=== PATIENT | female | born 1950 | race Caucasian/White ===

== ENCOUNTER 2021-04-29 12:40 | Emergency (ER) | payer MEDICARE, SELFPAY ==
[2021-04-29 12:50] VITALS: BP 133/65; PULSE 60; RESP 16; TEMP 37.3; O2SAT 100
--- NOTE | 2021-04-29 12:59 | ED.GENADULT ---
HPI - General Adult General Chief complaint: Urogenital-Female Stated complaint: Urinary Problem Time Seen by Provider: 04/29/21 13:05 Source: patient Mode of arrival: ambulatory Limitations: no limitations History of Present Illness HPI narrative: 71-year-old female patient presents to the [facility] with complaints of urinary symptoms on and off for a month. Patient states she has had some pain with urination, urgency, frequency and some cramping at times. Denies any low back pain, fevers, body aches or chills. Patient states she has been taking AZO at times which she feels like does help. Related Data Home Medications Medication Instructions Recorded Confirmed atenolol 50 mg PO DAILY 04/29/21 04/29/21 atorvastatin 10 mg PO DAILY 04/29/21 04/29/21 benazepril-hydrochlorothiazide 10 tablet PO DAILY 04/29/21 04/29/21 pantoprazole 20 mg PO DAILY 04/29/21 04/29/21 Allergies Allergy/AdvReac Type Severity Reaction Status Date / Time niacin Allergy Unknown Nausea Verified 04/29/21 13:04 Sulfa (Sulfonamide Allergy Unknown unknown Verified 04/29/21 13:04 Antibiotics) Review of Systems Review of Systems: CONSTITUTIONAL: Denies fever, chills, or sweats. EYES: Denies visual changes, redness, or discharge. ENT: Denies rhinorrhea, congestion, sore throat, or otalgia. CARDIOVASCULAR: Denies chest pain, palpitations, or edema. RESPIRATORY: Denies cough or dyspnea. GASTROINTESTINAL: Denies abdominal pain, nausea, vomiting, or diarrhea. GENITOURINARY: Positive dysuria denies hematuria. SKIN: Denies rash or itching. MUSCULOSKELETAL: Denies back pain, joint pain, or myalgia. NEUROLOGIC: Denies headache, numbness, or weakness. PSYCHIATRIC: Denies anxiety or depression. [facility] Past Medical History Medical History Hematuria, unspecified Polyp of cervix uteri Squamous cell skin cancer Family History Family History Father Hypertension Social History Social History Smoking status: Current every day smoker Alcohol intake: never Comments At the time of my signature I agree with nursing past medical history, surgical, social, and family history. There is no relevant family history pertinent to the presenting complaint. Exam Narrative: GENERAL: Well-appearing, well-nourished, and in no acute distress. HEAD: Normocephalic, atraumatic. EYES: PERRLA and EOMI. ENT: Nares clear, no rhinorrhea or epistaxis. Mucous membranes moist. NECK: Supple. No lymphadenopathy CHEST: Clear to auscultation. No respiratory distress. HEART: Regular rate and rhythm. No murmur heard. Normal peripheral pulses. ABDOMEN: Soft, nontender, nondistended, normal active bowel sounds. No CVA tenderness on percussion EXTREMITIES: Normal range of motion. No edema. SKIN: Warm, dry, no rash. NEURO: No focal deficits. Alert and oriented x3. Course Vital Signs Vital signs: Vital Signs Temperature 37.3 C 04/29/21 12:50 Pulse Rate 60 04/29/21 12:50 Respiratory Rate 16 04/29/21 12:50 Blood Pressure 133/65 04/29/21 12:50 Pulse Oximetry 100 04/29/21 12:50 Temperature 37.3 C 04/29/21 12:50 Pulse Rate 60 04/29/21 12:50 Respiratory Rate 16 04/29/21 12:50 Blood Pressure 133/65 04/29/21 12:50 Pulse Oximetry 100 04/29/21 12:50 Vital signs reviewed Medical Decision Making Differential Diagnosis Differential Diagnosis: Differential diagnosis: Uncomplicated lower UTI, uncomplicated UTI, pyelonephritis Discussed with patient that her urine does show evidence of urinary tract infection therefore we will go ahead and treat her today with antibiotics. Discussed with her that if the urine culture comes back showing that she needs a different type of antibiotic we will call her and change it at that time. Denies any other questions or concerns Vital Signs Vital Signs:
== END 2021-04-29 13:28 | disposition home or self-care (01) ==
PROVIDERS: Emergency Provider Nurse Practitioner Family; PCP Family Medicine
DX: N30.00 Acute cystitis without hematuria (principal); F17.200 Nicotine dependence, unspecified, uncomplicated; Z85.828 Personal history of other malignant neoplasm of skin
CPT/HCPCS: 81003; 87077; 87086; 87186; 99213; G0463

== ENCOUNTER 2022-09-17 13:18 | Outpatient (CLI) | payer MEDICARE, SELFPAY ==
[2022-09-17 14:18] LABS: Kit Draw Collected
== END 2022-09-17 13:19 | disposition home or self-care (01) ==
LOC: ANHGOSHLAB 13:19
PROVIDERS: PCP Family Medicine; Visit Provider Family Medicine
DX: R73.03 Prediabetes (principal); E55.9 Vitamin D deficiency, unspecified; Z11.59 Encounter for screening for other viral diseases
CPT/HCPCS: 36415

== ENCOUNTER 2022-11-09 11:02 | Emergency (ER) | payer MEDICARE, SELFPAY ==
[2022-11-09] VITALS (12 sets, daily range): BP systolic 149–168; BP diastolic 74–95; PULSE 57–75; RESP 14–26; TEMP 36.8; O2SAT 96
[2022-11-09 12:23] LABS: Alanine Aminotransferase 22 U/L (6-35); Alkaline Phosphatase 78 U/L (38-126); Anion Gap 4 mmol/L (8-16); Aspartate Amino Transferase 26 U/L (14-36); Bilirubin,Total 0.9 mg/dL (0.2-1.3); Blood Urea Nitrogen 12 mg/dL (7-17); Calcium 8.8 mg/dL (8.4-10.2); Carbon Dioxide 32 mmol/L (22-30); Chloride 98 mmol/L (98-107); Estimated CRCL calculation 74 ml/min; Estimated Glomerular Filt Rate > 60; Glucose 100 mg/dL (65-110); Magnesium 1.9 mg/dL (1.6-2.3); Potassium 3.6 mmol/L (3.4-5.0); Sodium 134 mmol/L (137-145)
--- NOTE | 2022-11-09 13:01 | ED.GENADULT ---
HPI - General Adult General Chief complaint: Unspecified Stated complaint: htn Time Seen by Provider: 11/09/22 11:15 History of Present Illness HPI narrative: Patient is a 72-year-old female who presents to the ER due to concerns for hypertension. Reports her blood pressures been elevated over the last 3 to 4 days. She started having a headache that was throbbing and at the top of her head. No radiation. She took her blood pressure and found it to be in the 180s systolic. She did not taking medicine for headache. She has increased her atenolol at home to treat her blood pressure has been fine has been running in the 150s and 160s systolic. She has no headache at this time. Reports some chronic sinus congestion. No fevers or chills or. No numbness or tingling in arm or leg. No slurred speech or change in vision/hearing. Patient was told to come to the ER by her PCP office due to her elevated blood pressure reading. Related Data Allergies Allergy/AdvReac Type Severity Reaction Status Date / Time niacin Allergy Unknown Nausea Verified 11/09/22 11:04 Sulfa (Sulfonamide Allergy Unknown unknown Verified 11/09/22 11:04 Antibiotics) Review of Systems Constitutional: Constitutional: Denies chills, Denies fever(s) and Reports headache(s) ENT: Denies dizziness, Reports nasal congestion and Denies sore throat Cardiovascular: Cardiovascular: Denies chest pain, Denies radiating jaw, neck or arm pain and Denies palpitations Respiratory: Respiratory: Denies cough and Denies dyspnea PMFSH Past Medical History Medical History Hematuria, unspecified Polyp of cervix uteri Squamous cell skin cancer Family History Family History Father Hypertension Social History Social History (Updated 09/17/22 @ 12:47 by Pipo Van MA) Smoking status: Current every day smoker Tobacco type: cigarettes Alcohol intake: never Exam Narrative: GENERAL: Well-appearing, well-nourished, and in no acute distress. HEAD: Normocephalic, atraumatic. ENT: Mucous membranes moist. CHEST: Clear to auscultation. No respiratory distress. HEART: Regular rate and rhythm. Normal peripheral pulses. EXTREMITIES: Normal range of motion. No edema. SKIN: Warm, dry, no rash. NEURO: Alert and oriented x3. PSYCH: Normal mood and affect. Course Course Emergency Course: Patient resting comfortably. Blood pressure has been running in the 150s systolic. Recommend follow-up with PCP for additional blood pressure management. Patient verbalized understanding. Also recommended smoking cessation. Vital Signs Vital signs: Vital Signs Temperature 98.2 F 11/09/22 11:05 Pulse Rate 61 11/09/22 11:05 Respiratory Rate 18 11/09/22 11:05 Blood Pressure 158/95 H 11/09/22 11:05 Pulse Oximetry 96 11/09/22 11:05 Oxygen Delivery Room Air 11/09/22 11:05 Temperature 98.2 F 11/09/22 11:05 Pulse Rate 59 L 11/09/22 12:46 Respiratory Rate 15 11/09/22 12:46 Blood Pressure 166/80 H 11/09/22 12:46 Pulse Oximetry 96 11/09/22 11:05 Oxygen Delivery Room Air 11/09/22 11:05 Medical Decision Making Vital Signs Vital Signs: Vital Signs Temperature 98.2 F 11/09/22 11:05 Pulse Rate 61 11/09/22 11:05 Respiratory Rate 18 11/09/22 11:05 Blood Pressure 158/95 H 11/09/22 11:05 Pulse Oximetry 96 11/09/22 11:05 Oxygen Delivery Room Air 11/09/22 11:05 Temperature 98.2 F 11/09/22 11:05 Pulse Rate 59 L 11/09/22 12:46 Respiratory Rate 15 11/09/22 12:46 Blood Pressure 166/80 H 11/09/22 12:46 Pulse Oximetry 96 11/09/22 11:05 Oxygen Delivery Room Air 11/09/22 11:05 Lab Data 11/09/22 12:06 Labs: Lab Results 11/09/22 Range/Units 12:06 Sodium 134 L (137-145) mmol/L Potassium 3.6 (3.4-5.0) mmol/L Chloride 98 (98-107) mmol/L Carbon D
== END 2022-11-09 13:12 | disposition home or self-care (01) ==
PROVIDERS: Emergency Provider Emergency Medicine; PCP Family Medicine
DX: I10 Essential (primary) hypertension (principal); Z85.828 Personal history of other malignant neoplasm of skin
CPT/HCPCS: 36415; 80053; 83735; 99283

== ENCOUNTER → 2022-12-16 13:16 | Outpatient (CLI) | payer MEDICARE, SELFPAY ==
--- NOTE | ~2022-12-16 | DEXA_ITS ---
Bone Density Report Name: DARCY MADRID Age: 72 Sex: Female Ethnicity: White Date of : 1950 Indication: osteopenia; height loss; prior fracture; postmenopausal Referring Provider: Ted Cassidy Study: Bone densitometry was performed. Exam Date: December 16, 2022 Accession number: [id number] Bone Density: Region BMD T-score Z-score Classification AP Spine (L1, L2, L3) 0.911 -1.0 1.1 Normal Femoral Neck (Left) 0.614 -2.1 -0.3 Osteopenia Total Hip (Left) 0.737 -1.7 -0.1 Osteopenia Femoral Neck (Right) 0.629 -2.0 -0.1 Osteopenia Total Hip (Right) 0.680 -2.1 -0.6 Osteopenia Total Hip Mean 0.709 -1.9 -0.4 Osteopenia World Health Organization criteria for BMD impression classify patients as: Normal (T-score at or above -1.0), Osteopenia (T-score between -1.0 and -2.5), or Osteoporosis (T-score at or below -2.5). 10-year Fracture Risk(1): Major Osteoporotic Fracture 18% Hip Fracture 6.0% Reported Risk Factors: [place] (), Neck BMD=0.614, BMI=21.5, previous fracture, smoking (1) FRAX(R) Version 3.08. Fracture probability calculated for an untreated patient. Fracture probability may be lower if the patient has received treatment. Previous Exams: Region Exam Age BMD T-score BMD Change BMD Change Date g/cm2 vs Baseline vs Previous AP Spine(L1, L2, L3) 12/16/2022 72 0.911 -1.0 -0.232* -0.062* 09/24/2016 66 0.972 -0.4 -0.171* -0.099* 09/01/2012 62 1.072 0.5 -0.071* -0.071* 05/02/2008 58 1.143 1.1 Total Hip(Left) 12/16/2022 72 0.737 -1.7 -0.394 -0.098* 09/24/2016 66 0.836 -0.9 -0.295 -0.113* 09/01/2012 62 0.949 0.1 -0.182 -0.020 05/02/2008 58 0.968 0.2 -0.162 -0.162 08/06/2002 52 1.131 1.5 Total Hip(Right) 12/16/2022 72 0.680 -2.1 -0.373 -0.078* 09/24/2016 66 0.758 -1.5 -0.295 -0.110* 09/01/2012 62 0.868 -0.6 -0.185 -0.035* 05/02/2008 58 0.903 -0.3 -0.150 -0.150 08/06/2002 52 1.053 0.9 *Denotes significance at 95% confidence level, LSC for AP Spine = 0.022 g/cm2, LSC for Total Hip = 0.027 g/cm2 Clinical Information Provided by Patient: Has had a low trauma fracture Smokes Has used the following medications: Vitamin D Patient maximum height was 69.0 Menopause Age: 54 No regular weight bearing exercise Drinks caffeinated beverages Onset o
--- NOTE | ~2022-12-16 | CT_ITS ---
EXAMINATION: CT lung screening DATE: 12/16/2022 14:28 INDICATION: Lung cancer screening TECHNIQUE: Computed tomography (CT) of the chest was performed without intravenous contrast. The dose -length product was 64.26 mGy-cm. Automated exposure control and iterative reconstruction technique w ere employed. Automated exposure control and iterative reconstruction technique were employed. COMPARISON: None FINDINGS: No thoracic lymphadenopathy. Heart size normal. No significant pleural or pericardial effus ion. There are calcified granulomas of the liver and spleen as well as the lung parenchyma. There is emphysema. There is atherosclerosis of the aorta and coronary arteries. There are scattered small 1-2 mm nodules which are not clearly calcified predominantly affecting the upper lobes. No pneumothorax. No focal consolidation. There is a 3-4 mm fissural nodule on the right, image 99. There is a 3 mm le ft-sided fissural nodule, image 76. IMPRESSION: 1. Lung-RADS category 2: Benign appearance or behavior. Continue annual screening with noncontrast lo w-dose chest CT in 12 months. Reviewed, dictated and finalized at location [] IMPRESSION: 1. Lung-RADS category 2: Benign appearance or behavior. Continue annual screeni ng with noncontrast low-dose chest CT in 12 months.
--- NOTE | ~2022-12-16 | MM_ITS ---
EXAMINATION: MM screening alejandro BI w fawn HISTORY: Screening mammogram TECHNIQUE: Craniocaudal and mediolateral oblique 3-D tomosynthesis images were obtained and synthetic 2-D images were generated. CAD analysis was submitted and interpreted. COMPARISON: 09/24/2016 bilateral screening mammogram BREAST PARENCHYMAL COMPOSITION: There are scattered areas of fibroglandular density. FINDINGS: There is no evidence of suspicious mass, calcification, or architectural distortion to sugg est malignancy in either breast. There has been no suspicious interval change. IMPRESSION: 1. No mammographic evidence of malignancy. 2. Recommend routine screening mammography in one year. BI-RADS Category 1: Negative Reviewed, dictated and finalized at location A.
== END ==
PROVIDERS: PCP Family Medicine; Visit Provider Physician Assistant
DX: Z12.31 Encounter for screening mammogram for malignant neoplasm of breast (principal); Z87.891 Personal history of nicotine dependence; M85.852 Other specified disorders of bone density and structure, left thigh; M85.851 Other specified disorders of bone density and structure, right thigh
CPT/HCPCS: 71271; 77063; 77067; 77080

== ENCOUNTER 2024-03-30 09:38 | Outpatient (CLI) | payer MEDICARE, SELFPAY ==
[2024-03-30 14:26] LABS: Alanine Aminotransferase 24 U/L (6-35); Albumin Level 4.4 g/dL (3.5-5.1); Alkaline Phosphatase 88 U/L (38-126); Anion Gap 7 mmol/L (4-12); Aspartate Amino Transferase 47 U/L (14-36); Blood Urea Nitrogen 13 mg/dL (7-17); Calcium 9.8 mg/dL (8.4-10.2); Carbon Dioxide 31 mmol/L (22-30); Chloride 98 mmol/L (98-107); Cholesterol 164 mg/dL (0-200); Estimated Glomerular Filt Rate > 60; Glucose 93 mg/dL (65-110); HDL Direct 55 mg/dL; Potassium 4.5 mmol/L (3.4-5.0); Sodium 136 mmol/L (137-145); Triglycerides 166 mg/dL (<150)
[2024-03-30 14:41] LABS: LDL Cholesterol Direct 74 mg/dL
[2024-03-30 15:10] LABS: Hemoglobin A1C 5.8 % (<5.7)
== END 2024-03-30 09:39 | disposition home or self-care (01) ==
PROVIDERS: PCP Family Medicine; Visit Provider Family Medicine
DX: E55.9 Vitamin D deficiency, unspecified (principal); I10 Essential (primary) hypertension; R73.03 Prediabetes; M85.80 Other specified disorders of bone density and structure, unspecified site; Z78.0 Asymptomatic menopausal state; Z11.59 Encounter for screening for other viral diseases
CPT/HCPCS: 36415; 80053; 80061; 82306; 83036; 86787

== ENCOUNTER 2024-04-05 11:29 | Outpatient (CLI) | payer MEDICARE, SELFPAY ==
--- NOTE | ~2024-04-05 | CT_ITS ---
CT Scan of the Chest without Contrast: Clinical Indication: Lung cancer screening, nicotine dependence Technique: Contiguous sections were acquired throughout the chest without intravenous contrast. Dose reduction technique was used on this scan by utilizing automated exposure control and iterative recon struction technique. The dose-length product (DLP) was 70.16 mGy-cm. COMPARISON: 12/16/2022 Findings: There is no evidence of any significant mediastinal, hilar or axillary lymphadenopathy. There are ext ensive atherosclerotic calcifications of the aorta and coronary arteries. There is no evidence of pleural or pericardial effusion. Tiny right upper lobe pulmonary nodules are similar to prior exam. No overtly suspicious pulmonary no dule identified. Stable small fissural nodules. Images through the upper abdomen reveal are calcified splenic granulomas. Impression: Lung RADS 2: Benign appearance. 12 month follow-up screening CT advised. Reviewed, dictated and finalized at [facility]. Impression: Lung RADS 2: Benign appearance. 12 month follow-up screening CT advised.
== END 2024-04-05 11:30 | disposition home or self-care (01) ==
PROVIDERS: PCP Family Medicine; Visit Provider Family Medicine
DX: Z12.2 Encounter for screening for malignant neoplasm of respiratory organs (principal); F17.210 Nicotine dependence, cigarettes, uncomplicated
CPT/HCPCS: 71271

== ENCOUNTER 2024-04-07 13:36 | Outpatient (CLI) | payer MEDICARE, SELFPAY ==
[2024-04-07 20:08] LABS: Thyroid Stimulating Hormone 0.493 uIU/mL (0.465-4.680)
== END 2024-04-07 13:37 | disposition home or self-care (01) ==
LOC: ANHGOSHLAB 13:38
PROVIDERS: PCP Family Medicine; Visit Provider Family Medicine
DX: R00.2 Palpitations (principal)
CPT/HCPCS: 36415; 84443

== ENCOUNTER 2025-05-08 22:39 | Emergency (ER) | payer MEDICARE, SELFPAY ==
--- NOTE | ~2025-05-08 | XR_ITS ---
Examination: XR chest 2V Clinical History: CHEST PAIN Comparison: CT chest 04/05/2024 Technique: PA and Lateral Findings: Cardiomediastinal silhouette normal size and configuration. Lungs clear. Mild hyperinflation. No acute bony abnormality. IMPRESSION: 1. No acute cardiopulmonary findings. Reviewed, dictated and finalized at location R. TEACHER
--- NOTE | 2025-05-08 22:46 | ECG_ITS ---
Test Date: 2025-05-08 22:51:51 Measurements Intervals [place] Rate: 68 P: 73 ID: [id number] QRS: 22 QRSD: 94 T: 56 QT: 411 QTc: 438 Interpretive Statements SINUS RHYTHM No previous ECG available for comparison Electronically Signed On 05-09-2025 06:41:21 [employer] [employer] by Luisa Best M.D.
[2025-05-08 23:12] LABS: Hematocrit 37.4 % (37.0-47.0); Hemoglobin 12.7 g/dL (12.0-15.0); Immature Granulocyte Percent A 0.5 % (0-0.5); Lymphocytes Absolute Auto 0.87 K/mm3 (0.9-3.2); Mean Corpuscular HGB Conc 34.0 g/dl (32-36); Mean Corpuscular Hemoglobin 32.6 pg (26-34); Mean Corpuscular Volume 95.9 fl (80-100); Nucleated Red Blood Cells Absolute Auto 0.000 K/mm3 (0.0-0.012); Nucleated Red Blood Cells Perc 0.0 % (0.0-0.2); Platelet Count Result 209 k/mm3 (150-375); Red Blood Count 3.90 M/mm3 (4.2-5.4); White Blood Count 5.9 K/mm3 (4.5-10.0)
[2025-05-08 23:25] LABS: INR 1.0; Prothrombin Time 12.7 Seconds (11.1-14.7)
[2025-05-08 23:26] LABS: Alanine Aminotransferase 22 U/L (6-35); Albumin Level 3.9 g/dL (3.5-5.1); Alkaline Phosphatase 91 U/L (38-126); Anion Gap 3 mmol/L (4-12); Aspartate Amino Transferase 36 U/L (14-36); Bilirubin,Total 0.4 mg/dL (0.2-1.3); Blood Urea Nitrogen 15 mg/dL (7-17); Calcium 8.9 mg/dL (8.4-10.2); Carbon Dioxide 30 mmol/L (22-30); Chloride 100 mmol/L (98-107); Estimated CRCL calculation 63 ml/min; Estimated Glomerular Filt Rate > 60; Glucose 113 mg/dL (65-110); Lipase 116 U/L (23-300); Partial Thromboplastin Time 30.7 Seconds (22.3-36.8); Potassium 3.6 mmol/L (3.4-5.0); Sodium 133 mmol/L (137-145); Total Protein 6.8 g/dL (6.3-8.2)
[2025-05-08 23:36] LABS: Troponin I < 0.012 ng/mL (0.000-0.034)
--- NOTE | 2025-05-09 01:41 | ED.CHESTPAIN ---
HPI - Chest Pain General Chief Complaint: Chest Pain Stated Complaint: EPISODE OF CHEST PAIN, NOW PAIN FREE Time Seen by Provider: 05/09/25 01:11 History of Present Illness HPI narrative: 75-year-old female with history of hypertension and hyperlipidemia presenting to the emergency department today with epigastric chest discomfort that was short-lived and sharp in quality. States she just felt some gas discomfort that went away quickly. She had an EMS, to scene and obtain an EKG that was normal. She came to the hospital in private vehicle to get evaluated. Has not had any pain or symptoms since this happened several hours ago prior to arrival to the ED. Denies any present chest pain, shortness a breath, nausea vomiting. Does have a history of GERD and takes medications for this. Has a history of anxiety and thinks it could have been related. Denies any symptoms at this time and feels at her baseline state of health. No history of cardiac events or cardiac disease to her knowledge. Related Data Home Medications ?Medication ?Instructions ?Recorded ?Confirmed ?Last Taken ?Type calcium carbonate (Calcium 600) 600 mg PO DAILY 04/01/23 03/30/25 Unknown History cholecalciferol (vitamin D3) 125 125 mcg PO DAILY 04/01/23 03/30/25 Unknown History mcg (5,000 unit) capsule mecobalamin (vitamin B12) 1,000 1,000 mcg PO DAILY 04/01/23 03/30/25 Unknown History mcg lozenges turmeric 125 mg-robert root 6 tablet PO 04/01/23 03/30/25 Unknown History mg-black pepper 50 mcg chewable tablet Allergies Allergy/AdvReac Type Severity Reaction Status Date / Time niacin Allergy Unknown Nausea Verified 05/08/25 22:41 Sulfa (Sulfonamide Allergy Unknown unknown Verified 05/08/25 22:41 Antibiotics) sertraline AdvReac Vomiting Uncoded 03/30/25 12:58 Review of Systems Review of Systems: As reviewed above in HPI PMFSH Past Medical History Medical History Hematuria, unspecified Polyp of cervix uteri Regional enteritis of unspecified site Squamous cell skin cancer Family History Family History Father Hypertension Social History Social History Smoking packs per day: 0.50 Smoking cigarettes per day: 10.0 Years smoked: 50 Smoking pack-years: 25.00 Smoking status: Current every day smoker Tobacco type: cigarettes Alcohol intake: never Substance use: never Substance use type: does not use Do You Feel Safe in your Home?: Yes Lack of Transportation: No Lack of Food: Never True Current Housing: I Have Housing Concerned About Future Housing: No Difficulty Paying Gas/Electric Bills: No Difficulty Paying for Meds: No Currently Unemployed: No Education: High School Diploma/GED Difficulty w/ Childcare or Family Care: No Exam Narrative: GENERAL: [Well-appearing, well-nourished, and in no acute distress.] HEAD: [Normocephalic, atraumatic.] EYES: [PERRLA and EOMI.] ENT: Nares clear, no rhinorrhea or epistaxis. Mucous membranes moist. NECK: Supple. CHEST: [Clear to auscultation. No respiratory distress.] HEART: [Regular rate and rhythm]. No murmur heard. [Normal peripheral pulses.] ABDOMEN: [Soft, nondistended], [nontender], [No rigidity or guarding] EXTREMITIES: Normal range of motion. [No edema.] SKIN: Warm, dry, no rash. NEURO: [No focal deficits]. Alert and oriented [x3.] PSYCH: [Normal mood and affect.] MDM - Chest Pain MDM Narrative Medical decision making narrative: 75-year-old female with history of hypertension and hyperlipidemia presenting to the emergency department today with epigastric chest discomfort that was short-lived and sharp in quality. States she just felt some gas discomfort that went away quickly. She had an EMS, to scene and obtain an EKG that was normal. She came to the hospital in private vehicle to get evaluated. Has not had any pain or symptoms since this happened several hours ago prior to arrival to the ED. Denies any present chest pain, shortness a breath, nausea vomiting. Does have a history of GERD and takes medications for this. Has a history of anxiety and thinks it could have been related. Denies any symptoms at this time and feels at her baseline state of health. No history of cardiac events or cardiac disease to her knowledge. Patient has reassuring vital signs. Blood pressure 164/74. No tachycardia, tachypnea. Strong symmetric pulses. Unremarkable physical examination. No symptoms. Cardiac workup ordered with single troponin given timeline of events to rule out ACS. EKG shows normal sinus rhythm. Troponin negative. Workup unrevealing with normal x-ray. Safe for discharge with any recurrent symptoms. Given follow-up instructions and return precautions. Medical Records Data Attestation: I reviewed the patient's medical records. Lab Data Attestation: I reviewed the patient's lab results. 05/08/25 22:57 05/08/25 22:57 Labs: Lab Results 05/08/25 Range/Units 22:57 WBC 5.9 (4.5-10.0) K/mm3 RBC 3.90 L (4.2-5.4) M/mm3 Hgb 12.7 (12.0-15.0) g/dL Hct 37.4 (37.0-47.0) % MCV 95.9 (80-100) fl MCH 32.6 (26-34) pg MCHC 34.0 (32-36) g/dl RDW 13.4 (11.5-14.5) % Plt Count 209 (150-375) k/mm3 MPV 10.6 H (7.4-10.4) fl Immature Gran % (Auto) 0.5 (0-0.5) % Neut % (Auto) 74.8 H (45.5-73.1) % Lymph % (Auto) 14.8 L (18.3-44.2) % [place] % (Auto) 8.2 (2.6-8.5) % Eos % (Auto) 1.2 (0-4.4) % Baso % (Auto) 0.5 (0.2-1.2) % Lymph # (Auto) 0.87 L (0.9-3.2) K/mm3 [place] # (Auto) 0.5 (0.1-0.6) K/mm3 Eos # (Auto) 0.1 (0-0.3) K/mm3 Baso # (Auto) 0.0 (0.0-0.1) K/mm3 Abs Immat Gran (auto) 0.03 (0.00-0.031) K/mm3 Absolute Neuts (auto) 4.4 (1.3-6.7) K/mm3 Absolute Nucleated RBC 0.000 (0.0-0.012) K/mm3 Nucleated RBC % 0.0 (0.0-0.2) % PT 12.7 (11.1-14.7) Seconds INR 1.0 APTT 30.7 (22.3-36.8) Seconds Sodium 133 L (137-145) mmol/L Potassium 3.6 (3.4-5.0) mmol/L Chloride 100 (98-107) mmol/L Carbon Dioxide 30 (22-30) mmol/L Anion Gap 3 L (4-12) mmol/L BUN 15 (7-17) mg/dL Creatinine 0.66 L (0.7-1.0) mg/dL Estim Creat Clear Calc 63 ml/min Estimated GFR > 60 (59 - ) Glucose 113 H (65-110) mg/dL Calcium 8.9 (8.4-10.2) mg/dL Total Bilirubin 0.4 (0.2-1.3) mg/dL AST 36 (14-36) U/L ALT 22 (6-35) U/L Alkaline Phosphatase 91 (38-126) U/L Troponin I < 0.012 (0.000-0.034) ng/mL Total Protein 6.8 (6.3-8.2) g/dL Albumin 3.9 (3.5-5.1) g/dL Lipase 116 (23-300) U/L Imaging Data Attestation: I personally reviewed and interpreted this imaging study as follows: My impression: Unremarkable chest x-ray Discharge Plan Discharge Clinical Impression: Chest pain Patient Disposition: Home Condition: Stable Instructions: Antibiotic Form, Chest Pain (ED) Additional Instructions: Laboratory studies are normal cardiac enzymes undetectable. EKG is normal. Follow-up with your primary care provider. Return with any recurrent or new symptoms or emergent concerns. Patient Language: Palestinian Prescriptions: No Action calcium carbonate [Calcium 600] 600 mg calcium (1,500 mg) tablet 600 mg PO DAILY mecobalamin (vitamin B12) 1,000 mcg lozenge 1,000 mcg PO DAILY Rx Instructions: allow to dissolve in mouth OR may chew lightly before swallowing [id number] pepper 125 mg-6 mg- 50 mcg tablet,chewable PO cholecalciferol (vitamin D3) 125 mcg (5,000 unit) capsule 125 mcg PO DAILY atenolol 50 mg tablet 50 mg PO DAILY Qty: 90 3RF hydrochlorothiazide 25 mg tablet 25 mg PO DAILY Qty: 90 3RF atorvastatin 10 mg tablet See Rx Instructions .ROUTE .COMPLEX Qty: 90 1RF Dose Instruction: TAKE 1 TABLET DAILY AT BEDTIME Rx Instructions: TAKE 1 TABLET DAILY AT BEDTIME pantoprazole 20 mg tablet,delayed release (DR/EC) See Rx Instructions .ROUTE .COMPLEX Qty: 90 1RF Dose Instruction: TAKE 1 TABLET EVERY MORNING Rx Instructions: TAKE 1 TABLET EVERY MORNING Follow-up/Referrals: Sarah Shelton MD [Primary Care Provider, Family Practice] Time of Disposition: 01:46 Quality HEART score for chest pain patients History: slightly suspicious ECG: normal Age: > or = to 65 years Risk factors: 1 or 2 risk factors Troponin: < or = to 1x normal limit Heart score: 3
== END 2025-05-09 01:54 | disposition home or self-care (01) ==
LOC: ANHED 05-09 01:50
PROVIDERS: Emergency Provider Student in an Organized Health Care Education/Training Program; PCP Family Medicine
DX: R07.89 Other chest pain (principal); I10 Essential (primary) hypertension; E78.5 Hyperlipidemia, unspecified; F41.9 Anxiety disorder, unspecified; K21.9 Gastro-esophageal reflux disease without esophagitis; F17.210 Nicotine dependence, cigarettes, uncomplicated; Z85.828 Personal history of other malignant neoplasm of skin; Z79.899 Other long term (current) drug therapy
CPT/HCPCS: 36415; 71046; 80053; 83690; 84484; 85025; 85610; 85730; 93005; 99284